=== PATIENT | female | born 1955 | race Caucasian/White ===

== ENCOUNTER 2025-02-07 17:34 | Emergency (ER) | payer MEDICARE, MEDICAID ==
[~2025-02-07] VITALS: Ht 157.5 cm; Wt 51.5 kg
[2025-02-07 17:37] VITALS: BP 142/96; PULSE 102; RESP 19; TEMP 98.1; O2SAT 98
[2025-02-07] MEDS ORDERED: AMOX500C2 PO (17:45)
--- NOTE | 2025-02-07 17:45 | Physician Documentation ---
History of Present Illness ~ Stated Complaint: TOOTH PAIN Time Seen by MD: 17:39 HPI 69-year-old female presents to the ED with a complaint of left lower molar pain and facial swelling. She denies any fevers but reports radiating pain to her ear. Medication Reconciliation Allergies: Coded Allergies: No Known Allergies (Unverified , 02/07/25) Scheduled Amoxicillin Trihydrate* (Amoxicillin*), 1 CAP PO Q8H Review of Systems All Other Systems at this time: Reviewed and Negative ROS As stated above in the HPI, otherwise all systems are reviewed and negative. Physical Exam Pulse Oximetry Reflects: adequate oxygenation Physical Exam General: Alert, no apparent distress. HEENT: PERRL, EOMI, no injection, moist mucous membranes. Poor dentition throughout oral cavity, notable swelling in the erythema in the lower left molar region. No of drainage Respiratory: Lungs clear, no respiratory distress. Cardiovascular: Regular rate and rhythm, no murmurs. Extremities: Normal range of motion, no deformity. Neurologic: Oriented x4. Psychiatric: Normal mood and affect. Skin: Normal color, warm and dry. No edema, no ecchymosis. Progress Results/Orders Results/Orders Vital Signs 02/07/25 17:37 Temp 98.1 Pulse 102 Resp 19 B/P (MAP) 142/96 Pulse Ox 98 Medical Decision Making Findings This patient has not appointment with her dentist on Tuesday morning we are going to treat her with a oral antibiotics to treat the initial infection for further evaluation by her dentist Departure Disposition: HOME / SELF CARE / HOMELESS Impression: Primary Impression: Caries Additional Impression: Tooth abscess Condition: Stable Discharge Instructions: Dental Caries, Adult, Dental Abscess Referrals: NO PRIMARY CARE PROVIDER (PCP) Prescriptions Amoxicillin Trihydrate* (Amoxicillin*) 500 Mg Capsule 1 CAP PO Q8H for 10 Days, #30 CAP Prov: LUKE SARMIENTO NP 02/07/25 Signature Scribe Signature: f Attestation: Scribed for Emergency,Department by Luke Huynh NP . 02/07/25 17:45 LUKE SARMIENTO NP Feb 07, 2025 17:45
[2025-02-07] MEDS: ibuprofen tablet 400 MG TABLET PO ONE (17:52)
== END 2025-02-07 17:54 | disposition home or self-care (01) ==
LOC: ER 17:35
DX: K02.9 Dental caries, unspecified (principal); K04.7 Periapical abscess without sinus
CPT/HCPCS: 99283